=== PATIENT | female | born 1975 | race Caucasian/White ===

== ENCOUNTER 2020-07-27 13:45 | Emergency (ER) | payer OTHER | END 2020-07-27 14:41 | disposition home or self-care (01) | LOC: JVIRT 13:45 | DX: Z11.59 Encounter for screening for other viral diseases (principal) | CPT/HCPCS: C9803; Q3014-GT; U0003 ==

== ENCOUNTER 2020-10-16 12:43 | Emergency (ER) | payer OTHER | END 2020-10-16 12:50 | disposition home or self-care (01) | LOC: JVIRT 12:43 | DX: Z20.822 Contact with and (suspected) exposure to COVID-19 (principal) | CPT/HCPCS: C9803; G2251-GT; Q3014-GT; U0003 ==

== ENCOUNTER 2020-10-31 10:56 | Emergency (ER) | payer OTHER | END 2020-10-31 12:16 | disposition home or self-care (01) | LOC: JVIRT 10:56 | DX: U07.1 COVID-19 (principal) | CPT/HCPCS: C9803; G2012-GT; U0003 ==

== ENCOUNTER 2020-12-15 16:19 | Emergency (ER) | payer OTHER ==
[2020-12-16 17:10] LABS: SARS-CoV-2 NAA Detected (Not Detected)
== END 2020-12-15 16:36 | disposition home or self-care (01) ==
LOC: JVIRT 16:19
DX: U07.1 COVID-19 (principal)
CPT/HCPCS: C9803; G2251-GT; Q3014-GT; U0003; U0005

== ENCOUNTER 2025-03-11 06:41 | Day surgery (SDC) | payer BC, OTHER ==
[2025-03-05 08:31] VITALS: BMI 23.1
[2025-03-11 08:54] VITALS: TEMP 98.7
[2025-03-11 09:20] VITALS: BP 105/69; PULSE 65; RESP 16
== END 2025-03-11 09:32 | disposition home or self-care (01) ==
LOC: JASU-ENDO 06:41
PROVIDERS: ATTEND Internal Medicine Gastroenterology
PROC: 0DJD8ZZ Inspection of Lower Intestinal Tract, Via Natural or Artificial Opening Endoscopic (ICD-10-PCS; principal; 2025-03-11 08:00)
DX: Z12.11 Encounter for screening for malignant neoplasm of colon (principal)